=== PATIENT | female | born 1990 | race Caucasian/White ===

== ENCOUNTER → 2016-05-28 | Outpatient (CLI) | payer OTHER, MEDICAID ==
--- NOTE | 2016-05-28 21:35 | REP ---
Clinical: Anatomical evaluation. Comparison: 04/23/2016 . Findings: Examination demonstrates a single live intrauterine in breech presentation. motion is identified by technologist. Placenta is noted anteriorly and grade zero without evidence for placenta previa or abruption. Amniotic fluid volume is normal. Cervix measures 6.0 cm in length and appears closed. No evidence for nuchal cord. Gestational age by LMP 23 weeks 2 days with JACQUELINE 09/22/2016 . Gestational age by current measurements 24 weeks 1 day with JACQUELINE 09/16/2016 . FHR equals 144 beats per minute. Estimated weight 676 grams ( 74th percentile). Anatomical assessment demonstrates normal structures including cranium, choroid plexus, cavum, cerebellum/posterior fossa, facial features, lungs, diaphragm, stomach, cord insertion, kidneys/bladder, spine, and extremities. Two-vessel cord noted. Suboptimal evaluation of the heart. Impression: Single live intrauterine in breech presentation demonstrating appropriate interval growth. Two-vessel cord (single umbilical artery). Limited evaluation of the heart and cardiac ventricular outflow tracts. Signed by Van Moise MD 05/28/2016 09:26 P
== END ==
LOC: M RAD 12:38
PROVIDERS: ATTEND Specialist
DX: Z36 Encounter for antenatal screening of mother (principal)

== ENCOUNTER → 2016-06-18 | Outpatient (CLI) | payer OTHER, MEDICAID ==
[2016-06-18 18:48] LABS: MEAN CORPUSCULAR HEMOGLOBIN 32.3 pg (27.0-33.0); MEAN CORPUSCULAR HGB CONC 33.9 g/dl (32.0-36.5); MEAN CORPUSCULAR VOLUME 95.5 fl (80.0-96.0); WHITE BLOOD COUNT 9.7 K/mm3 (4.0-10.0)
--- NOTE | 2016-06-19 03:40 | REP ---
Clinical: Anatomical evaluation. Comparison: 05/28/2016 . Findings: Examination demonstrates a single live intrauterine in breech presentation. motion is identified by technologist. Placenta is noted anteriorly and grade zero without evidence for placenta previa or abruption. Amniotic fluid volume is normal. Cervix measures 4.8 cm in length and appears closed. No evidence for nuchal cord. Gestational age by LMP 26 weeks 2 days with JACQUELINE 09/22/2016 . Gestational age by current measurements 26 weeks 4 days with JACQUELINE 09/20/2016 . FHR equals 144 beats per minute. Estimated weight 1000 grams ( 59th percentile). Anatomical assessment demonstrates normal structures including cranium, choroid plexus, cavum, cerebellum/posterior fossa, lungs, four-chamber heart/ventricular outflow tracts, diaphragm, stomach, cord insertion, kidneys/bladder, spine, and extremities. Two-vessel cord with single umbilical artery noted. Impression: Single live intrauterine in breech presentation demonstrating appropriate interval growth. In conjunction with prior examination anatomical assessment is complete. Vessel cord again noted. Signed by Van Moise MD 06/19/2016 03:32 A
== END ==
LOC: M SMT 13:22
PROVIDERS: ATTEND Advanced Practice Midwife
DX: Z34.82 Encounter for supervision of other normal pregnancy, second trimester (principal); Z3A.26 26 weeks gestation of pregnancy; O32.1XX0 Maternal care for breech presentation, not applicable or unspecified

== ENCOUNTER → 2016-06-25 | Outpatient (CLI) | payer OTHER, MEDICAID | LOC: M LAB 07:31 | PROVIDERS: ATTEND Advanced Practice Midwife | DX: Z34.80 Encounter for supervision of other normal pregnancy, unspecified trimester (principal) ==

== ENCOUNTER → 2016-08-05 | Outpatient (CLI) | payer OTHER, MEDICAID ==
--- NOTE | 2016-08-06 03:34 | REP ---
Clinical: Gestational diabetes for growth evaluation . Comparison: 06/18/2016 . Findings: Examination demonstrates a single live intrauterine in transverse presentation. motion is identified by technologist. Placenta is noted anteriorly and grade one without evidence for placenta previa or abruption. Amniotic fluid volume is normal. Cervix measures 4.6 cm in length and appears closed. No evidence for nuchal cord. Gestational age by LMP 33 weeks 1 day with JACQUELINE 09/22/2016 . Gestational age by current measurements 34 weeks 4 days with JACQUELINE 09/12/2016 . FHR equals 136 beats per minute. BPD 8.5 cm 34 weeks 1 day HC 31.7 cm 35 weeks 4 days AC 31.1 cm 35 weeks 0 days FL 6.8 cm 34 weeks 5 days HL 5.8 cm 33 weeks 6 days HC/AC ratio 1.02 Estimated weight 2555 grams ( 82nd percentile based on age by first ultrasound ). Amniotic fluid index equals 12.7 cm. Anatomical assessment again demonstrates two-vessel cord with single umbilical artery. Impression: Single live advanced gestation demonstrating appropriate interval growth when compared to first ultrasound. Two vessel cord again noted. Signed by Van Moise MD 08/06/2016 03:25 A
== END ==
LOC: M SMT 12:35
PROVIDERS: ATTEND Advanced Practice Midwife
DX: O24.410 Gestational diabetes mellitus in pregnancy, diet controlled (principal)

== ENCOUNTER 2016-08-21 14:23 | Outpatient (CLI) | payer OTHER, MEDICAID ==
[~2016-08-21] VITALS: Ht 160 cm; Wt 76.0 kg
[2016-08-21 14:34] VITALS: BP 119/69
[2016-08-21] MEDS ORDERED: PRENTAB9 PO (14:37)
== END 2016-08-21 16:55 | disposition home or self-care (01) ==
LOC: M LDO 14:23
PROVIDERS: ATTEND Specialist
DX: O99.89 Other specified diseases and conditions complicating pregnancy, childbirth and the puerperium (principal); W19.XXXA Unspecified fall, initial encounter; Y92.093 Driveway of other non-institutional residence as the place of occurrence of the external cause; Y93.9 Activity, unspecified; Y99.9 Unspecified external cause status; Z3A.35 35 weeks gestation of pregnancy

== ENCOUNTER → 2016-08-28 | Outpatient (REF) | payer OTHER ==
[~2016-08-28] MED LIST: PRENTAB9 PO
== END ==
LOC: M LAB REF 13:09
PROVIDERS: ATTEND Advanced Practice Midwife
DX: O24.410 Gestational diabetes mellitus in pregnancy, diet controlled (principal)

== ENCOUNTER 2016-09-18 10:17 | Inpatient (IN) | payer OTHER ==
[~2016-09-18] VITALS: Ht 160 cm; Wt 76.0 kg
[2016-09-18] MEDS ORDERED: DHA1CAP2 PO (10:39)
[2016-09-18] MEDS ORDERED: LR 1,000 ML IV SCH (14:08)
[2016-09-18] MEDS ORDERED: OXYTOCIN DRIP 30 UNITS in APPROPRIATE DILUENT 1 EA IV SCH (14:15)
[2016-09-18 15:04] VITALS: BP 113/56
[2016-09-18] MEDS: miSOPROStol 50 MCG 1/2 TAB (S0191) PO SCH (15:47)
[2016-09-18 15:50] LABS: MEAN CORPUSCULAR HEMOGLOBIN 33.5 pg (27.0-33.0); MEAN CORPUSCULAR HGB CONC 34.9 g/dl (32.0-36.5); RED CELL DISTRIBUTION WIDTH 14.5 % (11.5-14.5); WHITE BLOOD COUNT 6.5 K/mm3 (4.0-10.0)
--- NOTE | 2016-09-18 16:46 | HPE ---
DATE OF ADMISSION: 09/18/2016 REASON FOR ADMISSION: Induction of labor secondary to gestational diabetes. HISTORY OF PRESENT ILLNESS: This patient is a 26-year-old 2, para 0 who presents at 39 weeks 3 days estimated gestational age by 9 week ultrasound here for induction of labor. She was initially seen for routine appointment today at [facility] Nurse office. She was noted to have decelerations on Doptones and was placed on a non-stress test. She appeared to have deceleration approximately 9 minutes. Initially with a baseline of 120 with minimal variability. She was then sent in to labor and delivery for further evaluation. Her course has been remarkable for A1 gestational diabetes. She has been well controlled with diet. She also has a two vessel cord. She has been followed with serial growth scans and this does show appropriate growth. PAST MEDICAL HISTORY: None. PAST SURGICAL HISTORY: She has had a dilatation and curettage. MEDICATIONS: vitamins. ALLERGIES: PENICILLIN. AMOXICILLIN. SOCIAL HISTORY: Denies any alcohol or tobacco use during her . PHYSICAL EXAMINATION: Vital signs are stable. She is afebrile. She currently has a category 1 tracing with some irregular contractions on tocometer. General appearance: Well appearing. No acute distress. Lungs: Clear to auscultation bilaterally. Cardiovascular: Heart regular rate and rhythm. Abdomen: Nontender. Gravid. Estimated weight 3600 grams. Cervix: Her cervix was long and closed. LABS: Blood type AB positive. Antibody screen is negative. Rubella is immune. RPR is nonreactive. Hepatitis surface antigen is negative. HIV is negative. Hepatitis C is nonreactive. Chlamydia and gonorrhea screens were negative. She had elevated one hour glucose followed by abnormal three hour glucose tolerance test. She is GBS negative. ASSESSMENT: 1. This patient is a 26-year-old 2, para 0, who presents at 39 weeks 3 days estimated gestational age by 9 week ultrasound. 2. Gestational diabetes. 3. Category 2 heart tracing initially. Currently stable with a category 1. PLAN: 1. Admit to labor and delivery. CBC, RPR, type and screen. 2. Patient has been thoroughly counseled in regards to induction of labor and discussed induction of labor secondary to gestational diabetes in light of having a category 2 heart tracing. I have discussed medications, procedures performed in labor and delivery. She has also been verbally consented for emergency surgery, blood products and anesthesia and desires to proceed with admission. 3. Will initiate her induction of labor first with contraction stress test followed by misoprostol 50 mcg orally. MTDD
[2016-09-18 17:54] VITALS: BP 105/53
[2016-09-19] VITALS (22 sets, daily range): BP systolic 96–131; BP diastolic 53–81
[2016-09-19] MEDS: miSOPROStol 50 MCG 1/2 TAB (S0191) PO SCH (07:27)
[2016-09-19] MEDS ORDERED: OXYTOCIN DRIP 30 UNITS in APPROPRIATE DILUENT 1 EA IV SCH (13:45)
[2016-09-19] MEDS ORDERED: LR 1,000 ML IV SCH (14:00)
[2016-09-19] MEDS ORDERED: BUTORPHANOL 2 MG/ML INJ (J0595) IV ONE (22:45)
[2016-09-19] MEDS ORDERED: PROMETHAZINE INJ 25 MG/ML VIAL (J2550) IV ONE (22:45)
[2016-09-20] VITALS (14 sets, daily range): BP systolic 103–133; BP diastolic 55–80
[2016-09-20] MEDS ORDERED: MEASLES,MUMPS,RUBELLA VACCINE INJ (MMR-II) (90707) SC SCH (04:00)
[2016-09-20] MEDS ORDERED: METHYLERGONOVINE MALEATE 0.2 MG TAB PO PRN (04:00)
[2016-09-20] MEDS ORDERED: ACETAMINOPHEN 500 MG TAB PO PRN (04:00)
[2016-09-20] MEDS ORDERED: RHOGAM 300 MCG (1500 IU) INJ (J2790) IM SCH (04:00)
[2016-09-20] MEDS ORDERED: ONDANSETRON 4MG/2ML VIAL (J2405) IV PRN (04:00)
[2016-09-20] MEDS ORDERED: OXYTOCIN DRIP 30 UNITS in APPROPRIATE DILUENT 1 EA IV ONE (04:00)
[2016-09-20] MEDS ORDERED: DIBUCAINE 1% OINTMENT 30GM TOP PRN (04:00)
[2016-09-20] MEDS ORDERED: DOCUSATE SODIUM 100 MG CAP PO PRN (04:00)
[2016-09-20] MEDS: IBUPROFEN 800 MG TAB PO PRN ×2 (05:42→15:41)
--- NOTE | 2016-09-20 05:42 | DN ---
DATE: 09/20/2016 PREDELIVERY DIAGNOSIS: 40 weeks, diet-controlled diabetes. POSTDELIVERY DIAGNOSIS: Delivered. PROCEDURE: Spontaneous vaginal delivery. VALIDATION ARCHITECT: Dr. Rajesh Matthews. ANESTHESIA: None. ESTIMATED BLOOD LOSS: 300 mL. FINDINGS: 7 pound 11 ounce female infant, scores 9 and 10. DELIVERY SUMMARY: After a 36-minute second stage, the patient had spontaneous delivery of a 7 pound 11 ounce female with no delivery anesthesia. There was no nuchal cord. The shoulders delivered with ease. The cried spontaneously and was handed to the mother. Cord was doubly clamped and cut. Placenta delivered spontaneously and appeared to be intact. The patient received intravenous (IV) Pitocin immediately after delivery of the placenta. There were no vaginal lacerations present. Sponge counts were correct.
[2016-09-20] MEDS: PRENATAL VITAMIN TAB PO SCH (10:44)
[2016-09-21 07:05] VITALS: BP 109/63
[2016-09-21] MEDS: PRENATAL VITAMIN TAB PO SCH (09:21)
[2016-09-21] MEDS: IBUPROFEN 800 MG TAB PO PRN ×2 (09:21→17:39)
[2016-09-21 18:00] VITALS: BP 101/58
[2016-09-22 06:34] VITALS: BP 92/52
[2016-09-22] MEDS: PRENATAL VITAMIN TAB PO SCH (08:21)
[2016-09-22] MEDS: IBUPROFEN 800 MG TAB PO PRN (08:22)
[2016-09-22] MEDS ORDERED: ACET50TA PO (11:19)
[2016-09-22] MEDS ORDERED: IBUP-1114 PO (11:20)
== END 2016-09-22 15:30 | disposition home or self-care (01) | DRG 775 ==
LOC: M LDO 10:17 → M LDI 11:43 → M OBS 09-20 06:45
PROVIDERS: ADMIT Obstetrics & Gynecology; ATTEND Specialist
PROC: 3E0P7GC Introduction of Other Therapeutic Substance into Female Reproductive, Via Natural or Artificial Opening (ICD-10-PCS; 2016-09-18)
PROC: 10907ZC Drainage of Amniotic Fluid, Therapeutic from Products of Conception, Via Natural or Artificial Opening (ICD-10-PCS; 2016-09-19)
PROC: 10E0XZZ Delivery of Products of Conception, External Approach (ICD-10-PCS; principal; 2016-09-20)
DX: O76 Abnormality in fetal heart rate and rhythm complicating labor and delivery (principal); O24.420 Gestational diabetes mellitus in childbirth, diet controlled; Z3A.39 39 weeks gestation of pregnancy; Z88.0 Allergy status to penicillin; Z37.0 Single live birth